=== PATIENT | female | born 2000 | race Caucasian/White ===

== ENCOUNTER → 2021-04-16 | Outpatient (CLI) | payer OTHER ==
--- NOTE | 2021-04-16 15:03 | Diagnostic Imaging Report ---
INDICATION: Fell, tailbone pain. EXAMINATION: Sacrum and coccyx at 2:20 p.m. AP and lateral views were obtained. COMPARISON: There is no prior study available for comparison. FINDINGS: On the lateral view, there is a linear lucency extending obliquely through the distal most portion of the sacrum. This finding cannot be identified on the other two views but is suspicious for a slightly displaced fracture. Whether this injury is acute or subacute is not certain, however. If further imaging is desired, then MRI would be recommended. No other fracture or acute bony abnormality is appreciated. There is mild symmetrical scoliosis of the sacroiliac joints. IMPRESSION: The oblique linear lucency extending through the distal sacrum is suspicious for a fracture. Whether this is acute or subacute is not certain. Recommendations as above. Dictated by: Dictated on workstation # [id number]
== END ==
LOC: RAD FS 14:09
PROVIDERS: ATTEND Nurse Practitioner Family
DX: S30.0XXA Contusion of lower back and pelvis, initial encounter (principal); M41.9 Scoliosis, unspecified; W19.XXXA Unspecified fall, initial encounter
CPT/HCPCS: 72220